=== PATIENT | female | born 1960 | race American Indian/Alaskan Native ===

== ENCOUNTER 2017-02-01 12:32 | Outpatient (CLI) | payer OTHER ==
[2017-02-01 13:09] LABS: Hematocrit 36.9 % (35.5-45.6); Hemoglobin 12.6 gm/dl (11.8-15.2); Mean Corpuscular HGB Conc 34 % (32-34); Mean Corpuscular Hemoglobin 30 pg (28-32); Mean Corpuscular Volume 87 fl (84-94); Platelet Count 319 K/mm3 (140-440); Red Blood Count 4.26 M/mm3 (3.65-5.03); Red Cell Distribution Width 12.8 % (13.2-15.2); White Blood Count 3.8 K/mm3 (4.5-11.0)
[2017-02-01 13:30] LABS: Erythrocyte Sedimentation Rate 6 mm/Hr (0-20)
[2017-02-01 13:36] LABS: Alanine Aminotransferase 26 units/L (7-56); Albumin 4.6 g/dL (3.9-5); Albumin/Globulin Ratio 1.5 %; Alkaline Phosphatase 66 units/L (35-129); Anion Gap 17 mmol/L; BUN/Creatinine Ratio 20; Blood Urea Nitrogen 14 mg/dL (9-20); Calcium 9.5 mg/dL (8.4-10.2); Carbon Dioxide 26 mmol/L (22-30); Chloride 101.5 mmol/L (98-107); Creatine Kinase 94 units/L (55-170); Glucose 98 mg/dL (75-100); Potassium 3.8 mmol/L (3.6-5.0); Sodium 141 mmol/L (137-145); Total Protein 7.7 g/dL (6.3-8.2)
== END 2017-02-01 12:33 | disposition home or self-care (01) ==
LOC: EDSEX 12:32 → LAB 12:32
PROVIDERS: ATTEND Specialist
DX: G57.11 Meralgia paresthetica, right lower limb (principal); R79.89 Other specified abnormal findings of blood chemistry
CPT/HCPCS: 36415; 80053; 82085; 82306; 82550; 82607; 83036; 83921; 84443; 85027; 85652; 86038; 86225; 86334; 86592; 86618